=== PATIENT | female | born 1970 | race Caucasian/White ===

== ENCOUNTER 2018-09-09 07:09 | Emergency (ER) | payer BC ==
--- OUTSIDE RECORDS SUMMARY | 2018-09-09 07:25 | XMS REPORT ---
:1970 External Reference #:[id number] Author Organization [facility] Address [address] [address] Phone [phone] Care Team Providers Name Role Phone Rafael Perkins DO Care Team Information Silvering Department Supervisor Unavailable Payers Type Date Identification Numbers Payment Provider Subscriber Commercial Effective: Policy Number: [employer] [place]ential [place] 2016 [id number] Plan PayID: [id number] [address] [address] [place] [address] Workers Compensation PayID: [id number] No Fault [place] Problems Date Description Provider Status Onset: 12/05/2014 Neck pain Rafael Perkins DO Active Onset: 12/05/2014 Iron deficiency anemia Rafael Perkins DO Active Family History Date Family Member(s) Problem(s) Comments Father Cancer, Pancreatic : (age 68 Years) Mother due to Cancer, Breast Mother Hypertension Mother Allergies Mother Hypercholesterolemia First Brother Diabetes, Adult First Brother Heart Disease Social History Type Date Description Comments Education Higest level completed, Bachelor's Degree Marital Status Lives 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 Hobbies Cooking Hobbies Gardening Hobbies Running ETOH Use Rarely consumes alcohol Smoking Patient is a former smoker Recreational Drug Use Denies Drug Use Daily Caffeine Consumes on average 2 cups of tea per day Daily Caffeine Consumes on average 5 cups of coffee per day Allergies, Adverse Reactions, Alerts Date Description Reaction Status Severity Comments 12/05/2014 Latex active 12/05/2014 Seasonal active 12/05/2014 Scents active Medications Medication Date Status Form Strength Qnty SIG Indications Ordering Provider Ferrous Sulfate Active Tablets 325(65Fe) OTC 1 by Gregorio, 015 mg mouth Rafael, every DO day Cyclobenzaprine Active Tablets 10mg 30tabs prn M54.2 Unknown HCL 000 Ibuprofen Active Tablets 800mg 90tabs prn M54.2 Unknown 000 S73.111A Proair HFA Hx Aerosol 108(90B 8.500gm 2 puffs every J20.9 Gregorio 016 - ase) 4 hours as DO Rafael mcg/Act needed 016 Azithromycin Hx Tablets 250mg 6tabs 2 by mouth J20.9 Gregorio 016 - day 1, 1 by DO Rafael mouth day 2-5 016 Tamiflu Hx Capsules 75mg 10caps 1 by mouth 780.60 Gregorio 015 - twice a day DO Rafael 0[address] Sodium Hx Tablets [address] 75mg 60tabs prn 723.1 Unknown 000 - 016 843.0 Lo Loestrin Fe - Hx Tablets 1mg-10 mcg / 10 1 by mouth Unknown 03/24/[address] Turk Immunizations CPT Code Status Date Vaccine Lot # [id number] Given 12/28/2017 Influenza Vac, 3 Yrs & Older, Quadrivalent, Split, Im Use Q2037 Given 11/23/2016 Fluvirin Immunization Q2037 Given 11/07/2015 Fluvirin Immunization Vital Signs Date Vital Result Comment 08/10/2018 Weight 157.00 lb Heart Rate 74 /min BP Systolic 114 mmHg BP Diastolic 72 mmHg Respiratory Rate 18 /min Height 66.75 inches 5'6.75" (05/2018) BMI (Body Mass Index) 24.8 kg/m2 06/02/2018 Weight 150.00 lb Heart Rate 72 /min BP Systolic 124 mmHg BP Diastolic 64 mmHg Respiratory Rate 17 /min Height 66.75 inches 5'6.75" (05/2018) BMI (Body Mass Index) 23.7 kg/m2 03/24/2017 Weight 143.00 lb Heart Rate 74 /min BP Systolic 120 mmHg BP Diastolic 74 mmHg Respiratory Rate 18 /min Height 66.5 inches 5'6.50" BMI (Body Mass Index) 22.7 kg/m2 10/08/2016 Body Temperature 98.0 F Weight 152.00 lb Heart Rate 70 /min BP Systolic 110 mmHg BP Diastolic 68 mmHg Respiratory Rate 18 /min Height 66.5 inches 5'6.50" (10/16) BMI (Body Mass Index) 24.2 kg/m2 03/20/2016 Weight 149.00 lb Heart Rate 52 /min BP Systolic 124 mmHg BP Diastolic 78 mmHg Respiratory Rate 17 /min Height 66.5 inches 5'6.50" (03/2016) BMI (Body Mass Index) 23.7 kg/m2 03/07/2015 Weight 150.00 lb Heart Rate 60 /min BP Systolic 120 mmHg BP Diastolic 64 mmHg Respiratory Rate 17 /min Height 66.25 inches 5'6.25" (12/2014) BMI (Body Mass Index) 24.0 kg/m2 01/12/2015 Body Temperature 98.0 F Weight 150.00 lb Heart Rate 76 /min BP Systolic 120 mmHg BP Diastolic 70 mmHg Height 66.25 inches 5'6.25" (12/2014) O2 % BldC Oximetry 98 % BMI (Body Mass Index) 24.0 kg/m2 12/05/2014 Weight 150.00 lb Heart Rate 70 /min BP Systolic 118 mmHg BP Diastolic 70 mmHg Respiratory Rate 17 /min Height 66.25 inches 5'6.25" (12/2014) BMI (Body Mass Index) 24.0 kg/m2 Results Test Date Test Result H/L Range Note CBC with Auto Diff-fcmg 06/02/2018 WBC 7.5 K/uL 4.1-11.0 RBC 4.66 M/uL 4.00-5.40 Hemoglobin 14.0 gm/dL 12.0-16.0 Hematocrit 41.1 % 36.0-47.0 MCV 88.3 fL 80.0-97.0 MCH 30.1 pg 27.0-32.0 MCHC 34.1 g/dL 32.0-36.0 RDW 12.5 % 11.5-14.5 PLT Count 331 K/ul 140-400 MPV 9.2 FL 7.1-10.7 Neutrophil 64.7 % 35.0-75.0 Lymphocyte 25.2 % 16.0-52.0 Monocyte 8.4 % 2.0-10.0 Eosinophil 0.8 % 0.0-5.0 Basophil 0.9 % 0.0-4.0 Abs Neutrophils 4.8 K/uL 2.1-8.0 Abs Lymphocytes 1.9 K/uL 0.8-5.5 Abs Monocytes 0.6 K/uL 0.1-1.0 Abs Eosinophils 0.1 K/uL 0.0-0.5 Abs Basophils 0.1 K/uL 0.0-0.3 Laboratory test finding 06/02/2018 Ferritin 22.3 ng/ml 11.0-306.8 Iron, Total 149 g/dL 50-170 CBC With Auto Diff 03/24/2017 WBC 5.3 K/uL 4.1-11.0 RBC 4.12 M/uL 4.00-5.40 Hemoglobin 12.4 gm/dL 12.0-16.0 Hematocrit 36.6 % 36.0-47.0 MCV 88.8 fL 80.0-97.0 MCH 30.0 pg 27.0-32.0 MCHC 33.8 g/dL 32.0-36.0 RDW 12.1 % 11.5-14.5 PLT Count 382 K/ul 140-400 Neutrophil 55.4 % 35.0-75.0 Lymphocyte 34.3 % 16.0-52.0 Monocyte 7.8 % 2.0-10.0 Eosinophil 1.3 % 0.0-5.0 Basophil 1.2 % 0.0-4.0 Abs Neutrophils 2.9 K/uL 2.1-8.0 Abs Lymphocytes 1.8 K/uL 0.8-5.5 Abs Monocytes 0.4 K/uL 0.1-1.0 Abs Eosinophils 0.1 K/uL 0.0-0.5 Abs Basophils 0.1 K/uL 0.0-0.3 Laboratory test finding 03/24/2017 Ferritin 16.7 ng/ml 11.0-306.0 Iron, Total 163 g/dL 50-170 Lipid 03/24/2017 Cholesterol 180 mg/dL 50-199 Triglycerides 68 mg/dL 30-200 HDL 59 mg/dL 35-85 1 Chol/ HDL Ratio 3.1 ratio Low 3.7-5.6 VLDL 14 mg/dL 2-29 LDL (Calc) 108 mg/dL High 20-99 2 Comprehensive Metabolic (CMP) 03/24/2017 Sodium 136 mmol/L 135-146 3 Potassium 4.4 mmol/L 3.5-5.2 Chloride# 101 mmol/L 97-110 4 Carbon Dioxide 27 mmol/L 24-34 Glucose 77 mg/dL 70-105 BUN 10 mg/dL 6-26 Creatinine 0.7 mg/dL 0.5-1.4 Calcium 9.3 mg/dL 8.5-10.2 Total Protein 6.3 g/dL 6.0-8.0 Albumin 4.4 g/dL 3.6-4.9 Globulin 1.9 g/dL Low 2.0-3.5 A/G Ratio 2.3 Ratio High 1.0-2.2 Total Bilirubin 0.4 mg/dL 0.1-1.3 Alkaline Phosphatase 48 U/L 24-140 Alt 13 U/L 3-42 Ast 23 U/L 8-42 Nazia Egfr >60 >60 5 Non Nazia Egfr >60 >60 6 Anion Gap 12 mmol/L 7-16 7 Laboratory test finding 03/24/2017 TSH 0.95 uIU/mL 0.35-4.94 Iron Panel 03/20/2016 Iron,Total @ 67 g/dL (35-150) Uibc @ 290 g/dL (130-375) Tibc @ 357 g/dL (250-450) % Saturation 19 % (12-50) 8 CBC With Auto Diff 03/20/2016 WBC 6.9 10*3/uL (4.1-11.0) RBC 4.56 10*6/uL (4.00-5.40) HGB 13.6 g/dL (12.0-16.0) HCT 40.9 % (36.0-47.0) MCV 89.8 fL (80.0-95.0) MCH 29.9 pg (27.0-32.0) MCHC 33.3 g/dL (32.0-36.0) RDW 12.5 % (10.5-14.5) PLT 295 10*3/uL (150-450) MPV 9.5 fL (7.1-10.7) Neut % 58.1 % (35.0-75.0) Lymph % 32.9 % (16.0-52.0) Oneida % 7.2 % (0.0-8.0) Eos % 1.3 % (0.0-5.0) Baso % 0.5 % (0.0-4.0) Neut # 4.0 10*3/uL (1.8-7.7) Lymph # 2.3 10*3/uL (1.2-4.8) Oneida # 0.5 10*3/uL (0.0-0.8) Eos # 0.1 10*3/uL (0.0-0.5) Baso # 0.0 10*3/uL (0.0-0.2) 9 Laboratory test finding 03/20/2016 Ferritin 20 ng/mL (8-252) 10 CBC With Auto Diff 02/28/2015 WBC 5.1 K/uL 4.1-11.0 RBC 4.44 M/uL 4.00-5.40 Hemoglobin 13.7 gm/dL 12.0-16.0 Hematocrit 40.1 % 36.0-47.0 MCV 90.3 fL 80.0-97.0 MCH 30.8 pg 27.0-32.0 MCHC 34.1 g/dL 32.0-36.0 RDW 12.6 % 11.5-14.5 PLT Count 328 K/ul 140-400 Neutrophil 58.3 % 35.0-75.0 Lymphocyte 29.6 % 16.0-52.0 Monocyte 9.2 % 2.0-10.0 Eosinophil 2.2 % 0.0-5.0 Basophil 0.7 % 0.0-4.0 Abs Neutrophils 3.0 K/uL 2.1-8.0 Abs Lymphocytes 1.5 K/uL 0.8-5.5 Abmon 0.5 K/uL 0.1-1.0 Abs Eosinophils 0.1 K/uL 0.0-0.5 Abs Basophils 0.0 K/uL 0.0-0.3 Laboratory test 02/28/2015 Ferritin 20.7 ng/ml 11.0-306.0 finding Laboratory test 01/12/2015 Throat Culture Microbiology res <SEE 11 finding NOTE> 1 Per NCEP ATP III Guidelines: Results lower than 40 mg/dL are suggestive of increased risk for coronary artery disease. Results > or=to 60 mg/dL are considered a negative risk factor. 2 Per NCEP ATP III Guidelines: Normal Population <130 Patients with medical conditions: CHD/DM Optimal: <100 Borderline high: 130-159 High: 160-189 Very high: >189 3 Updated reference range on new analyzer 4 Updated reference range on new analyzer 5 Concerning GFR Guidelines for Americans: Normal function or mild renal disease, if clinically at risk: >/=60 mL/min Moderately decreased: 30-59 Severely decreased: 15-29 Renal failure: <15 6 Concerning GFR Guidelines: Normal function or mild renal disease, if clinically at risk: >/=60 mL/min Moderately decreased: 30-59 Severely decreased: 15-29 Renal failure: <15 Glomerular Filtration Rate (GFR) is estimated based on the MDRD equation, which assumes a steady state for creatinine as recommended by the National Kidney Disease Education Program in conjunction with the National Institutes of Health and the National Kidney Foundation. Clinical conditions in which it may be necessary to measure GFR by using clearance methods include extremes of age and body size, severe malnutrition or obesity, diseases of skeletal muscle, paraplegia or quadriplegia, vegetarian diet, rapidly changing kidney function, and calculation of the dose of potentially toxic drugs that are excreted by the kidneys. 7 Updated reference range on new analyzer 8 Unless otherwise specified, testing performed by [email or web address] [address] [place] [address] 9 Unless otherwise specified, testing performed by [facility] [address] [place] [address] 10 Unless otherwise specified, testing performed by [facility] [address] [place] [address] 11 Microbiology results RESULT Normal throat nhi.No beta hemolytic streptococci isolated. Procedures Description No Information Encounters Type Date Location Provider CPT E/M Dx Office Visit 06/02/2018 11:30a [facility] [place] [address] Z00.00 D50.9 M54.2 N92.6 R42 R59.0 Office Visit 03/24/2017 9:00a [facility] [place] [address] Z00.00 D50.9 M54.2 Z13.220 R63.4 Office Visit 10/08/2016 8:30a [facility] [place] [address] J20.9 Office Visit 03/20/2016 3:30p [facility] [place] [address] Z00.00 D50.9 M54.2 L84 Office Visit 03/07/2015 9:30a [facility] [place] [address] 280.9 729.5 Office Visit 01/12/2015 9:45a [facility] [place] [address] 462 780.60 Office Visit 12/05/2014 2:00p [facility] [place] [address] 280.9 723.1 843.0 Plan of Care Future Appointment(s):08/18/2018 9:30 am - Melody Ellis PA at [facility]2018 9:00 am - Rafael Perkins DO at [facility]08/10/2018 - Melody Ellis PAS06.0x0A Concussion without loss of consciousness, initial encounterComments: Suspect visual symptoms related to concussionAdvised to continue tylenol/ ibuprofenDiscussed brain rest, avoiding runningDo not think CT needed at this timeIf vision smyptoms persist, consider imaging, seeing Dr. Weir with worsening symptomsFollow up:1 week with me or Dr. Perkins
--- OUTSIDE RECORDS SUMMARY | 2018-09-09 07:25 | XMS REPORT ---
:1970 External Reference #:[id number] Author Organization [facility] Address [address] [address] Phone [phone] Care Team Providers Name Role Phone Rafael Perkins DO Care Team Information Accounting Assistant Unavailable Payers Type Date Identification Numbers Payment Provider Subscriber Commercial Effective: Policy Number: BCBS [place] 2016 [id number] Plan PayID: [id number] [address] [address] [place] [address] Workers Compensation Onset: 2018 Policy Number: Kenyatta Matta [id number] Sury PayID: [id number] [place] [address] Problems Date Description Provider Status Onset: 12/05/2014 [...] Degree Marital Status 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 Hobbies Cooking Hobbies Gardening Hobbies Running ETOH [...] mg mouth Rafael, every DO day Cyclobenzaprine 0 Active Tablets 10mg 30tabs prn M54.2 Unknown HCL 000 Ibuprofen Active Tablets 800mg 90tabs prn M54.2 Unknown 000 S73.111A Proair HFA Hx Aerosol 108(90B 8.500gm 2 puffs every J20.9 Gregorio , 016 - ase) 4 hours as DO Rafael mcg/Act needed 016 Azithromycin Hx Tablets 250mg 6tabs 2 by mouth J20.9 Gregoroi 016 - day 1, 1 by DO Rafael mouth day 2-5 016 Tamiflu Hx Capsules 75mg 10caps 1 by mouth 780.60 Gregorio 015 - twice a day DO Rafael 015 Diclofenac Sodium [address] 75mg 60tabs prn 723.1 Unknown 000 - 016 843.0 Lo Loestrin Fe - Hx Tablets 1mg-10 mcg / 10 1 by mouth Unknown 03/24/[address] Turk Immunizations CPT Code Status Date Vaccine Lot # [id number] Given 12/28/2017 Influenza Vac, 3 Yrs & Older, Quadrivalent, Split, Im Use Q2037 Given 11/23/2016 Fluvirin Immunization Q2037 Given 11/07/2015 Fluvirin Immunization Vital Signs Date Vital Result Comment 08/18/2018 Heart Rate 72 /min BP Systolic 118 mmHg BP Diastolic 76 mmHg Respiratory Rate 18 /min Height 66.75 inches 5'6.75" (05/2018) 08/10/2018 Weight 157.00 lb Heart Rate 74 [...] % (35.0-75.0) Lymph % 32.9 % (16.0-52.0) Amador % 7.2 % (0.0-8.0) Eos % 1.3 % (0.0-5.0) Baso % 0.5 % (0.0-4.0) Neut # 4.0 10*3/uL (1.8-7.7) Lymph # 2.3 10*3/uL (1.2-4.8) Amador # 0.5 10*3/uL (0.0-0.8) Eos # 0.1 [...] Unless otherwise specified, testing performed by Laboratory [facility] [address] 9 Unless otherwise specified, testing performed by [facility] [address] 10 Unless otherwise specified, testing performed by [facility] [employer] [address] 11 Microbiology results RESULT Normal throat nhi.No beta hemolytic streptococci isolated. Procedures Description No Information Encounters Type Date Location Provider CPT E/M Dx Office Visit 06/02/2018 11:30[place] [address] Z00.00 D50.9 M54.2 N92.6 R42 R59.0 Office Visit 03/24/2017 9:00a [place] [address] Z00.00 D50.9 M54.2 Z13.220 R63.4 Office Visit 10/08/2016 8:30a [facility] [place] [address] J20.9 Office Visit 03/20/2016 3:30p [facility] [place] [address] Z00.00 D50.9 M54.2 L84 Office Visit 03/07/2015 9:30a [facility] [place] [address] 280.9 729.5 Office Visit 01/12/2015 9:45a [facility] [place] [address] 462 780.60 Office Visit 12/05/2014 2:00p [facility] [place] [address] 280.9 723.1 843.0 Plan of Care Future Appointment(s):06/04/2019 9:00 am - Rafael Perkins DO at [facility]08/18/2018 - Melody Ellis PAS06.0x0D Concussion without loss of consciousness, subs encntrComments:ImprovedAdvised slow return into running, stop with any return of symptomsCall with questions/concernsFollow up:Prn
--- OUTSIDE RECORDS SUMMARY | 2018-09-09 07:25 | XMS REPORT ---
:1970 External Reference #:[id number] 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 Hobbies Cooking Hobbies Gardening Hobbies Running [...] CPT Code Status Date Vaccine Lot # [id number] Given 12/28/2017 Influenza Vac, 3 Yrs & [...] % (35.0-75.0) Lymph % 32.9 % (16.0-52.0) Tate % 7.2 % (0.0-8.0) Eos % 1.3 % (0.0-5.0) Baso % 0.5 % (0.0-4.0) Neut # 4.0 10*3/uL (1.8-7.7) Lymph # 2.3 10*3/uL (1.2-4.8) Tate # 0.5 10*3/uL (0.0-0.8) Eos # 0.1 [...] Unless otherwise specified, testing performed by [facility] [address] [place] [address] 9 Unless otherwise specified, testing performed by [facility] [address] [place] [address] 10 Unless otherwise specified, testing performed by [facility] [address] [place] [address] 11 Microbiology results RESULT Normal throat nhi.No beta hemolytic streptococci isolated. Procedures Description No Information Encounters Type Date Location Provider CPT E/M Dx Office Visit 06/02/2018 11:30a [facility] [place] [address] Z00.00 D50.9 M54.2 N92.6 R42 R59.0 Office Visit 03/24/2017 9:00a [facility] [place] [address] Z00.00 D50.9 M54.2 Z13.220 R63.4 Office Visit 10/08/2016 8:30a [facility] [place] [address] J20.9 Office Visit 03/20/2016 3:30p [facility] [place] [address] Z00.00 D50.9 M54.2 L84 Office Visit 03/07/2015 9:30a [facility] [place] [address] 280.9 729.5 Office Visit 01/12/2015 9:45a [facility] [place] [address] 462 780.60 Office Visit 12/05/2014 2:00p [facility] [place] [address] 280.9 723.1 843.0 Plan of Care Future Appointment(s):06/04/2019 9:00 am - Rafael Perkins DO at [facility]08/18/2018 - Melody Ellis PAS06.0x0D Concussion without loss of consciousness, subs encntrComments:ImprovedAdvised slow return into running, stop with any return of symptomsCall with questions/concernsFollow up:Prn
--- OUTSIDE RECORDS SUMMARY | 2018-09-09 07:25 | XMS REPORT ---
:1970 External Reference #:[id number] Author Organization [facility] Address [address] [address] Phone [phone] Care Team Providers Name Role Phone Rafael Perkins DO Care Team Information Channel Lip Wetter Unavailable Payers Type Date Identification Numbers Payment Provider Subscriber Commercial Effective: Policy Number: BCBS [place] 2016 [id number] Plan PayID: [id number] [address] [address] [place] [address] Workers Compensation Onset: 2018 Policy Number: Kenyatta Matta [id number] Sury PayID: [id number] [address] [place] [address] Problems Date Description Provider Status Onset: 12/05/2014 [...] Degree Marital Status 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 Hobbies Cooking Hobbies Gardening Hobbies Running [...] Aerosol 108(90B 8.500gm 2 puffs every J20.9 Gergorio , 016 - ase) 4 hours as [...] CPT Code Status Date Vaccine Lot # [id number] Given 12/28/2017 Influenza Vac, 3 Yrs & [...] % (35.0-75.0) Lymph % 32.9 % (16.0-52.0) Clarke % 7.2 % (0.0-8.0) Eos % 1.3 % (0.0-5.0) Baso % 0.5 % (0.0-4.0) Neut # 4.0 10*3/uL (1.8-7.7) Lymph # 2.3 10*3/uL (1.2-4.8) Clarke # 0.5 10*3/uL (0.0-0.8) Eos # 0.1 [...] Unless otherwise specified, testing performed by Laboratory [employer] [facility] [place] [address] 9 Unless otherwise specified, testing performed by [facility] [place] [address] 10 Unless otherwise specified, testing performed by [facility] [place] [address] 11 Microbiology results RESULT Normal throat nhi.No beta hemolytic streptococci isolated. Procedures Description No Information Encounters Type Date Location Provider CPT E/M Dx Office Visit 06/02/2018 11:30[place] [address] Z00.00 D50.9 M54.2 N92.6 R42 R59.0 Office Visit 03/24/2017 9:00a [place] [address] Z00.00 D50.9 M54.2 Z13.220 R63.4 Office Visit 10/08/2016 8:30a [facility] [place] [address] J20.9 Office Visit 03/20/2016 3:30p [facility] [place] [place] [address] Z00.00 D50.9 M54.2 L84 Office Visit 03/07/2015 9:30a [facility] [place] [place] [address] 280.9 729.5 Office Visit 01/12/2015 9:45a [facility] [place] [address] 462 780.60 Office Visit 12/05/2014 2:00p [facility] [place] [place] [address] 280.9 723.1 843.0 Plan of Care Future Appointment(s):06/04/2019 9:00 am - Rafael Perkins DO at [facility]08/18/2018 - Melody Ellis PAS06.0x0D Concussion without loss of consciousness, subs encntrComments:ImprovedAdvised slow return into running, stop with any return of symptomsCall with questions/concernsFollow up:Prn
[2018-09-09 07:29] VITALS: BP 111/61
--- NOTE | 2018-09-09 07:42 | UC ---
Throat Pain/Nasal Carlos HPI - HPI Summary HPI Summary: 48-year-old woman comes to clinic today with a chief complaint of fevers chills sore throat and right ear pain. She's been having upper respiratory congestion for 2 weeks. In the last 1 day all the other symptoms showed up and she feels terrible. Ibuprofen helps with the pain in the fevers. She's been resting which also helps however overall she's getting worse. - History of Current Complaint Chief Complaint: UCGeneralIllness Stated Complaint: SORE THROAT,EARS Time Seen by Provider: 09/09/18 07:29 Pain Intensity: 6 - Allergies/Home Medications Allergies/Adverse Reactions: Allergies Allergy/AdvReac Type Severity Reaction Status Date / Time latex Allergy Hives Verified 09/09/18 07:27 Home Medications: Home Medications Ibuprofen 800 mg PO Q8H 09/09/18 [History Confirmed 09/09/18] PMH/Surg Hx/FS Hx/Imm Hx Other Neurological History: concussion - Surgical History Surgical History: Yes Surgery Procedure, Year, and Place: BLADDER SLING. ESSURE - Family History Known Family History: Negative: Diabetes - Social History Alcohol Use: None Substance Use Type: None Smoking Status (MU): Former Smoker When Did the Patient Quit Smoking/Using Tobacco: 14 YEARS AGO Review of Systems Constitutional: Fever, Chills Skin: Negative Eyes: Negative ENT: Sore Throat, Ear Ache, Nasal Discharge, Sinus Congestion, Sinus Pain/ Tenderness Respiratory: Negative Cardiovascular: Negative Gastrointestinal: Negative Motor: Negative Neurovascular: Negative Musculoskeletal: Negative Neurological: Negative Psychological: Negative Is Patient Immunocompromised?: No All Other Systems Reviewed And Are Negative: Yes Physical Exam Triage Information Reviewed: Yes Appearance: No Pain Distress, Well-Nourished, Ill-Appearing - mild Vital Signs: Initial Vital Signs Temp 98.3 F 09/09/18 07:24 Pulse 94 09/09/18 07:24 Resp 17 09/09/18 07:24 BP 111/61 09/09/18 07:24 Pulse Ox 98 09/09/18 07:24 Vital Signs Reviewed: Yes Eye Exam: Normal Eyes: Positive: Conjunctiva Clear ENT: Positive: Pharyngeal erythema, Nasal congestion, Nasal drainage, TM red - right Neck: Positive: Supple, Other: - Tenderness on the right side of the neck just below the angle of the jaw there is no obvious swelling there.. Negative: Nuchal Rigidity Respiratory: Positive: Lungs clear, Normal breath sounds, No respiratory distress Cardiovascular: Positive: RRR Musculoskeletal Exam: Normal Musculoskeletal: Positive: Strength Intact, ROM Intact Neurological Exam: Normal Neurological: Positive: Alert, Fatigued Psychological Exam: Normal Psychological: Positive: Age Appropriate Behavior Skin Exam: Normal Throat Pain/Nasal Course/Dx - Course Course Of Treatment: Sx > 10 days - Differential Dx/Diagnosis Provider Diagnoses: right otitis media. sinusitis Discharge - Sign-Out/Discharge Documenting (check all that apply): Patient Departure All imaging exams completed and their final reports reviewed: No Studies - Discharge Plan Condition: Stable Disposition: HOME Prescriptions: Amoxicillin/Clavulanate TAB* [Augmentin TAB 875*] 875 mg PO BID #20 tab Patient Education Materials: Ear Infection (ED), Sinusitis (ED) Forms: *Work Release Referrals: Rafael Perkins DO [Primary Care Provider] - Additional Instructions: FOLLOW UP WITH YOUR DOCTOR IF NOT COMPLETELY IMPROVED. GET RECHECKED FOR ANY WORSENING OF YOUR CONDITION OR QUESTIONS OR CONCERNS. - Billing Disposition and Condition Condition: STABLE Disposition: Home
== END 2018-09-09 07:45 | disposition home or self-care (01) ==
LOC: UCCORT 07:09
DX: H66.91 Otitis media, unspecified, right ear (principal); J32.9 Chronic sinusitis, unspecified
CPT/HCPCS: 99212; G0463